=== PATIENT | male | born 1995 | race Caucasian/White ===

== ENCOUNTER 2022-07-23 13:31 | Emergency (ER) | payer SELFPAY ==
[2022-07-23 13:32] VITALS: BP 149/77; PULSE 73; RESP 18; TEMP 36.1; O2SAT 99; BMI 22.7
--- NOTE | 2022-07-23 14:12 | US_ITS ---
STUDY: SCROTUM ULTRASOUND REASON FOR EXAM: Male, 26 years old. Pain and swelling of the left scrotum. TECHNIQUE: Ultrasound evaluation of the scrotum was performed with color Doppler and static rothman-scale imaging. COMPARISON: None. FINDINGS: RIGHT TESTICLE INTRATESTICULAR: There is a normal size of the right testicle. The right testicle measures 5.0 x 2.7 x 2.4 cm. There is a homogenous echotexture. There is normal arterial and normal venous vascularity. There is no demonstrated right testicular mass or cyst. EXTRATESTICULAR: The epididymis is normal in size. The epididymis head measures 0.8 x 1.5 x 1.1 cm. There is normal vascularity of the epididymis. There is no demonstrated epididymal cystic structure. There is a small hydrocele. There is no demonstrated varicocele. There is no demonstrated extratesticular mass or cyst. LEFT TESTICLE INTRATESTICULAR: There is a normal size of the left testicle. The left testicle measures 4.1 x 2.7 x 2.7 cm. There is a homogenous echotexture. There is normal arterial and normal venous vascularity. There is no demonstrated left testicular mass or cyst. EXTRATESTICULAR: The epididymis is normal in size. The epididymis head measures 0.8 x 1.2 x 1.2 cm. There is increased vascularity of the epididymis. There is no demonstrated epididymal cystic structure. There is a moderate size hydrocele. There are prominent extratesticular veins consistent with a varicocele. There is no demonstrated extratesticular mass or cyst. US/Testicular with Arterial Flow IMPRESSION: 1. Increased vascularity in the left epididymis. Question epididymitis. 2. Left varicocele. 3. Bilateral hydroceles, left greater than right. Electronically Signed: Horace Montes DO at 15:44 EST ,
--- NOTE | 2022-07-23 14:14 | ED.RN ---
THIS RN EDUCATION DEPARTMENT CHAIR FOR EXAM PER DR TAPIA.
[2022-07-23 14:30] LABS: Bacteria 0 SEEN /hpf (None Seen); Mucous, Urine 0 SEEN /hpf (<or=2+); Red Blood Cells-Urine 0 SEEN /hpf (0-5); Squamous Epithelial Cells - UA 0 SEEN /hpf (0-5); White Blood Cells 0 SEEN /hpf (0-5)
--- NOTE | 2022-07-23 14:32 | EX.ED.GUMALE ---
HPI History of Present Illness Chief Complaint: Male Pain/Injury Narrative Narrative: 26-year-old male presents with 3 to 4 weeks of left inguinal lymphadenopathy and left testicular pain and swelling. He denies any fevers or chills. No penile discharge. No dysuria or hematuria. He states his symptoms started with what he noticed or 2 swollen lymph nodes in his left inguinal area. He then noticed that his left testicle started to swell. He complains of diffuse pain that is dull and achy in the left testicle, and that it feels hard near the back of his testicle. He denies any exacerbating or alleviating symptoms. No redness to the area. He presents for evaluation of his left testicular pain. [facility] Medical History no medical history Home Medications doxycycline hyclate 100 mg tablet 100 mg PO BID 14 days #28 tabs 07/23/22 [Rx Last Taken Unknown] Allergy/AdvReac Type Severity Reaction Status Date / Time No Known Allergies Allergy Verified 07/23/22 13:33 Family History no significant family his Surgical History no surgical history Social History Smoking Status: Never smoker ROS ROS ED ROS Narrative Constitutional: No fever, no chills. HEENT: No sore throat. No neck pain. No loss of vision. No rhinorrhea. Cardiovascular: No chest pain. No palpitations. No pedal edema. Respiratory: No cough, no shortness of breath. Abdominal: No abdominal pain. No nausea. No vomiting. Genitourinary: No dysuria. No hematuria. No penile discharge. Left testicular swelling and pain. Enlarged lymph nodes left groin. Musculoskeletal: No myalgias. No arthralgias. Neurologic: No headaches. No dizziness. No lightheadedness. Skin: No rash. No change in color. Psychiatric: No depression. No anxiety. EXAM Physical Exam Narrative Exam Narrative: Afebrile. Vital signs noted. HEENT: Normocephalic. Atraumatic. PERRL, EOMI. Neck soft and supple. No point tenderness or step off. Cardiovascular: Regular rate and rhythm. No murmurs, rubs, or gallops appreciated. Respiratory: No tachypnea. Lungs clear to auscultation bilaterally. Gastrointestinal: Abdomen soft, nontender, with normoactive bowel sounds. No rebound or guarding. Genitourinary: Chaperoned examination does reveal mild swelling of the left testicle with induration in the epididymal area. There are 2 enlarged lymph nodes in the left inguinal area without erythema or exquisite tenderness. Neurological: Awake. Alert. Nonfocal, nonlateralizing. Skin: No rash. Normal color. No pallor. Musculoskeletal: No pedal edema. Full range of motion extremities. Const Vital Signs: 07/23/22 13:32 Temperature 97 F L Temperature Source Temporal Pulse Rate 73 Respiratory Rate 18 Blood Pressure 149/77 H Blood Pressure Mean 101 Pulse Ox 99 Oxygen Delivery Method Room Air MDM MDM MDM Narrative Medical decision making narrative: Comprehensive work-up was pursued. He could have epididymitis. Ultrasound of the testicles/scrotum was obtained along with basic laboratory work including CBC and BMP to look for elevated white count. Urinalysis will also be obtained. I discussed with him that regardless of the findings he may require follow-up with a urologist. I reviewed his laboratory work, he has a normal white count of 5.8, hemoglobin 14.6 and hematocrit normal at 41.8. Normal platelet count of 250. In review of his BMP, sodium is slightly low at 134, BUN normal/low at 6 with a normal creatinine of 0.73. Urinalysis is negative for infection, no ketones, 0 white cells, negative nitrites. I reviewed his ultrasound results from the radiologist. There is increased vascularity to the left epididymis consistent with epididymitis. Additionally, the left testicle is normal sized without mass. He may have a small hydrocele and varicocele. In discussion with the patient, he was concerned about testicular cancer. While there is no mass, he will be started on doxycycline as he is less than age 35. He was given his first dose of doxycycline here and a prescription written for the next 2 weeks. He was also referred to urology. I feel he could be discharged safely home with follow-up. Return instructions to the emergency department were reviewed. Disposition is discharged home in stable condition. History & Record Review Discussion w/independent historian: Patient Additional record(s) reviewed:: No prior records Lab Data Attestation: I reviewed the patient's lab results. Labs: Laboratory Results - last 24 hr 07/23/22 07/23/22 07/23/22 14:20 14:25 14:25 WBC 5.8 RBC 4.83 Hgb 14.6 Hct 41.8 MCV 86.5 MCH 30.2 MCHC 34.9 RDW Std Deviation 38.2 RDW Coeff of Danny 11.9 Plt Count 250 MPV 9.3 Immature Gran % (Auto) 0.200 Neut % (Auto) 52.0 Lymph % (Auto) 37.4 Cochran % (Auto) 8.9 Eos % (Auto) 1.2 Baso % (Auto) 0.3 Absolute Neuts (auto) 3.0 Absolute Lymphs (auto) 2.15 Nucleated RBC % 0 Sodium 134 L Potassium 3.9 Chloride 101 Carbon Dioxide 29.0 Anion Gap 4 L BUN 6 L Creatinine 0.73 Estim Creat Clear Calc 139.59 Est GFR (MDRD) Af Amer 168 Est GFR (MDRD) Non-Af 139 BUN/Creatinine Ratio 8.2 L Glucose 91 Calcium 9.0 Urine Color Straw Urine Clarity Clear Urine pH 8.0 Ur Specific [place] 1.015 Urine Protein Negative Urine Glucose (UA) Normal Urine Ketones Negative Urine Occult Blood Negative Urine Nitrite Negative Urine Bilirubin Negative Urine Urobilinogen Normal Ur Leukocyte Esterase Negative Urine RBC 0 SEEN Urine WBC 0 SEEN Ur Squamous Epith Cells 0 SEEN Urine Bacteria 0 SEEN Urine Mucus 0 SEEN Radiography Diagnostic Testing: Clinical Impression(s) from Imaging Studies Testicular Ultrasound 07/23/22 14:12 IMPRESSION: 1. Increased vascularity in the left epididymis. Question epididymitis. 2. Left varicocele. 3. Bilateral hydroceles, left greater than right. Electronically Signed: Horace Montes DO at 15:44 EST Reading Location ID and State: [address] [place] [address] Tel [phone], Service support , Discharge Plan Triage Chief Complaint: Male Pain/Injury ED Provider: Real Burch Dx/Rx/DC Orders Clinical Impression: Epididymitis, left, Left testicular pain Instructions: ED Epididymitis, ED Testicular Pain, Unclear Cause Prescriptions: New doxycycline hyclate 100 mg tablet 100 mg PO BID 14 Days Qty: 28 0RF Primary Care Provider: Care Physician,No Primary Referrals: Tino Crandall MD [Med Staff - Active Staff] - 1 Week Care Physician,No Primary [Primary Care Provider] - Activity Restrictions/Additional Instructions: Wear more supportive undergarments. Follow-up with urology in approximately 1 week. Finish all the antibiotics. Disposition Disposition: Home, Self Care
[2022-07-23 14:34] LABS: Color, Urine Straw (Yellow); Glucose, Dipstick Normal (Normal); Ketone-Dipstick Negative (Negative); Leukocyte Esterase-Dipstick Negative /ul (Negative); Nitrite-Dipstick Negative (Negative); Occult Blood-Urine Negative /ul (Negative); Protein-Dipstick Negative (Negative); Specific Gravity, Urine 1.015 (1.002-1.030); Urine Bilirubin Dipstick Negative (Negative); Urine Clarity Clear (Clear); Urine Urobilinogen Normal (Normal)
[2022-07-23 14:34] LABS: Absolute Lymphocyte Count 2.15 X10^3/uL (0.83-4.51); Basophil# 0.02 X10^3/uL; Basophil% 0.3 % (0-1); Eosinophil# 0.07 X10^3/uL; Eosinophils% 1.2 % (0-5); Hematocrit 41.8 % (40-54); Hemoglobin 14.6 g/dL (13.0-16.5); Lymphocyte # 2.15 X10^3/ul (0.83-4.51); Lymphocyte % 37.4 % (19-41); Mean Corp Hgb Conc 34.9 g/dL (32-36); Mean Corpuscular Hgb 30.2 pg (27.0-32.0); Mean Corpuscular Volume 86.5 fL (80-94); Mean Platelet Vol. 9.3 fl (6.2-12.0); Monocyte# 0.51 X10^3/uL; Monocyte% 8.9 % (0-10); NRBC Flagged by Analyzer 0 % (0-5); Neutrophil # 2.99 X10^3/uL (2.7-7.7); Platelet Count 250 K/mm3 (150-450); RBC Distribution Width CV 11.9 % (11.6-14.6); RBC Distribution Width SD 38.2 fl (35.1-43.9); Red Blood Count 4.83 M/mm3 (4.6-6.2); White Blood Count 5.8 K/mm3 (4.4-11.0)
[2022-07-23 14:46] LABS: Anion Gap 4 (5-15); BUN 6 mg/dL (7-18); BUN/Creat Ratio 8.2 RATIO (10-20); Chloride 101 mmol/L (98-107); Creatinine, Serum 0.73 mg/dL (0.70-1.30); EST Glomerular Filtration Rate 139 mL/min (>60); Est Glom Filt Rate - Afr Amer 168 mL/min (>60); Estimated Creatinine Clearance 139.59 ml/min; Glucose 91 mg/dL (74-106); Potassium 3.9 mmol/L (3.5-5.1); Sodium Level 134 mmol/L (136-145)
--- NOTE | 2022-07-23 15:03 | CM.ED ---
Social Work Note Referral Source: Case find Referral Reason: no insurance SW met with patient and introduced herself and role as [facility] Manager Rn. Patient was sitting up in hospital bed and agreeable to speak with Social Work. SW inquired about patient's current insurance. Patient reports he does not have insurance currently and hasn't applied for Medicaid in years. SW provided patient with Medicaid application and explained patient is able to complete the application in person, over the phone or online. SW also provided patient with [employer] resource list and reviewed [employer] employment program. Patient was receptive towards application and [employer] resource list. No other needs voiced at this time. Winifred Duncan MSW, HEIDI
[2022-07-23] MEDS: Doxycycline 100 MG CAPSULE PO (16:09)
== END 2022-07-23 16:09 | disposition home or self-care (01) ==
PROVIDERS: Emergency Provider Emergency Medicine; Visit Provider Emergency Medicine
DX: N45.1 Epididymitis (principal); N50.812 Left testicular pain
CPT/HCPCS: 76870; 80048; 81001; 85025; 93976; 99283